=== PATIENT | male | born 1930 | race African-American/Black ===

== ENCOUNTER 2017-08-04 13:26 | Observation (INO) ==
[2017-08-04] MEDS ORDERED: CeFAZolin Syr 2,000MG/20 ML 2,000 MG/20 ML SYRINGE IVPB ONE (13:56)
[2017-08-04] MEDS ORDERED: Plasma-Lyte A (PH 7.4) 1,000 ML IVC SCH (14:00)
--- NOTE | 2017-08-04 14:03 | Anesthesia Evaluation PreOp ---
Date of Encounter: 08/04/17 Time of Encounter: 14:00 - Past History Planned Operation: Open Right Inguinal Hernia Repair Cardiac History: HTN, Hyperlipidemia Pulmonary History: Former smoker (quit > 10 years ago) [employer] History: Seizures, CVA Other Medical History: Diabetes Type II, GERD, Other (Gout) Anesthesia History: No Prior Anesthetic Complications, Past Anesthesia (GB, Hernia, T&A. Right Knee, Foot sx, Hip tumor, Trigeminal sx, CTR) Alcohol Use: none Drug use: none Medications and Allergies Allopurinol [Zyloprim] 100 mg PO BID 06/19/16 [History] Atorvastatin [Lipitor] 80 mg PO HS 06/19/16 [History] Carvedilol 3.125 mg PO BID 06/19/16 [History] Cholecalciferol (Vitamin D3) [Vitamin D3] 1 cap PO DAILY 06/19/16 [History] Ferrous Sulfate [Iron] 325 mg PO DAILY 06/19/16 [History] Folic Acid [Folic Acid] 1 mg PO DAILY 06/19/16 [History] Loperamide [Imodium] 2 mg PO DAILY PRN 06/19/16 [History] Meclizine [Antivert] 25 mg PO TID PRN 06/19/16 [History] Pravastatin Sodium [Pravachol] 60 mg PO DAILY 06/19/16 [History] Sitagliptin Phosphate [Januvia] 50 mg PO DAILY 06/19/16 [History] Terazosin [Hytrin] 1 mg PO DAILY 06/19/16 [History] Docusate Sodium 100 mg PO DAILY PRN 08/01/16 [History] Famotidine [Pepcid] 40 mg PO DAILY 08/04/17 [History] Loratadine [Allergy Relief] 10 mg PO DAILY 08/04/17 [History] 3 Allergy/AdvReac Type Severity Reaction Status Date / Time amlodipine [From [facility]] Allergy See Verified 08/01/16 10:30 Comments peanut Allergy Anaphylaxis Verified 08/01/16 10:30 - Meds/Allergy Pre-op Review Medications Reviewed: Yes Allergies Reviewed: Yes Beta Blockers on Current Med List: Yes If Beta Blockers taken, Date/Time (Last Dose taken): 08/04/17 @ 19:00 Anesthesia Results - Labs Laboratory Tests 11/17/14 06/19/16 05/22/17 16:03 03:36 09:17 WBC Hgb Hct Plt Count INR 1.1 Sodium 139 Potassium 4.2 Chloride 107 Carbon Dioxide 26 BUN 15 Creatinine 1.06 Hemoglobin A1c 05/22/17 07/26/17 09:17 11:14 WBC 6.3 Hgb 10.1 L Hct 32.7 L Plt Count 257 INR Sodium Potassium Chloride Carbon Dioxide BUN Creatinine Hemoglobin A1c 6.0 H - Imaging EKG: report reviewed (SB) Anesthesia Exam O2 Sat Height 1.7 m Height 1.7 m Weight 73.936 kg Weight 73.936 kg O2 Sat by Pulse Oximetry 98 Vital Signs Temp Pulse Resp BP Pulse Ox 97.6 F 69 18 162/77 98 08/04/17 13:47 08/04/17 13:47 08/04/17 13:47 08/04/17 13:47 08/04/17 13:47 NPO (# of Hours): > 8 Hrs Pain Scale: 0 Pain Scale Used: Numeric (1 - 10) - HEENT Pupil (Motor): Pupils equal, EOMI Mallampati: III (facial Trauma In Urdu War) Teeth: Missing Denture Type: Upper: Complete, Lower: Complete Oral Opening: Greater than 3 - [employer] LOC: Oriented [employer] Motor: Normal RUE, Normal LUE, Normal RLE, Normal LLE, Normal Face [employer] Sensory: Normal: RUE, LUE, RLE, LLE, Face - Cardiac Rhythm: Regular Murmur: None JVD: No Carotid Bruit: No - Pulmonary Breath Sounds: bilateral Clear Respiratory Effort: Symmetrical Anesthesia Assess/Plan ASA Score: 3 Modified Gambier Scale for Level of Consciousness: Cooperative, oriented, and tranquil Anesthetic Plan: General Autologous Blood: Yes Monitoring Plan: Standard Monitors Recovery Plan: PACU
[2017-08-04] MEDS ORDERED: *HR* FentaNYL (PF) 100 MCG/2 ML VIAL ONE (14:28)
[2017-08-04] MEDS ORDERED: *HR* Propofol 200 MG/20 ML VIAL IVP ONE (14:28)
[2017-08-04] MEDS ORDERED: Famotidine 20 MG/2 ML VIAL IVP ONE (15:34)
[2017-08-04] MEDS ORDERED: Acetaminophen IV 1,000 MG/100 ML INFUS..BTL IVPB ONE (15:34)
[2017-08-04] MEDS ORDERED: Acetaminophen IV 1,000 MG/100 ML INFUS..BTL ONE (15:37)
[2017-08-04] MEDS ORDERED: Famotidine 20 MG/2 ML VIAL ONE (15:38)
--- NOTE | 2017-08-04 16:10 | History & Physical Report ---
Date of Encounter: 08/04/17 Time of Encounter: 16:09 24 Hour HP Update - Instructions Instructions: If the History and Physical is less than 30 days old and was completed prior to A.M. admission and or procedure and has NOT been updated on calendar day of procedure please complete this update prior to performing procedure. - Update Patient reports changes in Medical Condition: No Changes in examination, assessment, or condition: No Changes in Medication: No Preop tests/diagnostics Reviewed: Yes Surgery Remains Indicated: Yes Consent for Planned Operative Procedure(s) Verified: Yes - Pre-Operative Checklist Preoperative Checklist Indicated: Yes Prophylactic Antibiotic Ordered: Yes Home Medications Include Beta Manuel: Yes Beta Manuel Taken Today (Day of Surgery): Yes Beta Manuel Taken Yesterday (Day Prior to Surgery): Yes Is VTE Prophylaxis Indicated?: Yes - Attending Attestation patient seen and examined; no changes in health since last evaluation; okay to proceed with surgery
[2017-08-04] MEDS ORDERED: EPHEDrine 50 MG/ML VIAL ONE (17:09)
[2017-08-04] MEDS ORDERED: Ondansetron 4 MG/2 ML VIAL ONE (17:23)
[2017-08-04] MEDS ORDERED: Dexamethasone 4 MG/ML VIAL ONE (17:23)
[2017-08-04] MEDS ORDERED: Lidocaine -MPF 2% 2 ML VIAL ONE (17:23)
[2017-08-04] MEDS ORDERED: *HR* HYDROmorphone (PF) 1 MG/ML SYRINGE IVP PRN (17:29)
[2017-08-04] MEDS ORDERED: Ondansetron 4 MG/2 ML VIAL IVP ONE (17:29)
[2017-08-04] MEDS ORDERED: *HR* HYDROmorphone 2 MG/ML SYRINGE ONE (17:36)
--- NOTE | 2017-08-04 19:23 | Discharge Summary ---
Outpatient Proc Discharge Plan - Plan Additional Instructions: Pain: Alternate every 6 hours with tylenol (325mg) and ibuprofen (400mg or 600mg ) for the next 48 hours, whether the patient feels pain or not. Use the oxycodone as needed for pain not controlled with tylenol and ibuprofen. Activity: no lifting more than 15lbs. No strenuous exercise or activity. Your mesh will need time to incorporate into your tissues. Incision: keep the incision dry until 08/06/17. Things to expect: you may experience scrotal swelling and bruising. That is expected. I advise you to wear supportive underwear or a jock strap. You may also apply ice to the incision and the groin region, 20 min on and 20 min off. You may experience a fullness in your groin and it may feel as if your hernia came back. This is expected. Things to Watch out for: If you experience SIGNIFICANT pain in your groin, redness along the incision, pus like drainage, fevers, chills, numbness or tingling, or any symptoms you feel warrant evaluation, please call the office. Prescriptions: Oxycodone HCl 5 mg PO Q6HR PRN 7 Days #28 tablet PRN Reason: Pain Docusate Sodium [Colace] 100 mg PO BID 10 Days #20 capsule Home Medications: Allopurinol [Zyloprim] 100 mg PO BID 06/19/16 [History] Atorvastatin [Lipitor] 80 mg PO HS 06/19/16 [History] Carvedilol 3.125 mg PO BID 06/19/16 [History] Cholecalciferol (Vitamin D3) [Vitamin D3] 1 cap PO DAILY 06/19/16 [History] Ferrous Sulfate [Iron] 325 mg PO DAILY 06/19/16 [History] Loperamide [Imodium] 2 mg PO DAILY PRN 06/19/16 [History] Meclizine [Antivert] 25 mg PO TID PRN 06/19/16 [History] Sitagliptin Phosphate [Januvia] 50 mg PO DAILY 06/19/16 [History] Terazosin [Hytrin] 1 mg PO DAILY 06/19/16 [History] Docusate Sodium [Colace] 100 mg PO BID 10 Days #20 capsule 08/04/17 [Rx] Famotidine [Pepcid] 40 mg PO DAILY 08/04/17 [History] Lisinopril [Zestril] 5 mg PO DAILY 08/04/17 [History] Loratadine [Allergy Relief] 10 mg PO DAILY PRN 08/04/17 [History] Oxycodone HCl 5 mg PO Q6HR PRN 7 Days #28 tablet 08/04/17 [Rx]
[2017-08-04] MEDS ORDERED: *HR* OxyCODONE Immed Rel 5 MG TABLET PO PRN (20:02)
[2017-08-04] MEDS ORDERED: Ibuprofen 400 MG TABLET PO PRN (20:02)
[2017-08-04] MEDS ORDERED: Naloxone 0.4 MG/ML INJ IVP PRN (20:02)
[2017-08-04] MEDS ORDERED: Ondansetron ODT 4 MG TAB.RAPDIS SL PRN (20:02)
[2017-08-04] MEDS ORDERED: D5% in 0.45% NACL 1,000 ML IVC SCH (20:15)
--- NOTE | 2017-08-04 20:24 | Anesthesia Evaluation Post Op ---
Date of Encounter: 08/04/17 Time of Encounter: 20:23 - Vital Signs Vital Signs: Last Vital Signs Temp 98.4 F 08/04/17 20:11 Pulse 86 08/04/17 20:11 Resp 13 08/04/17 20:11 BP 119/67 08/04/17 20:11 Pulse Ox 96 08/04/17 20:11 - Lungs Lungs: Clear Ascult./Percussion - Airway Airway: Non-obstructed - Cardiovascular Regular Rate - Mental Status Mental Status: Alert & Oriented, Answers Appropriately - Pain Pain Scale: 3 - Nausea Vomiting Nausea Vomiting: Not Present - Hydration Hydration: NPO - Discharge PostOp Status: Transfer Patient to floor
--- NOTE | 2017-08-04 20:25 | Operative Note ---
Date of procedure: 08/04/17 Pre-op diagnosis: right inguinal hernia Post-op diagnosis: other (right direct inguinal hernia, reducible) Procedure: open right inguinal hernia repair with mesh Implants: mesh Anesthesia: GETA Local Anesthetics: 0.5% Sensorcaine HCL SubQ (cc) Surgeon: Elroy Phelps Was there an medical laboratory assistant present: Yes Steam Tunnel Feeder: Kath Corey Estimated blood loss (cc): 10 Specimen: none Condition: stable Disposition: PACU Procedure in Detail: The patient was brought into the operating room suite and placed in the supine position. Mechanical DVT prophylaxis was placed. The patient underwent smooth induction of anesthesia. Preoperative antibiotics were given. A timeout was held identifying correct patient pathology and procedure and physician.. Everyone was in agreement and we began the procedure. Incision to Aponeurosis of the External Oblique I identified ASIS and the pubic tubercle, and used a marking pen to draw the path parallel to the inguinal ligament two fingerbreadths above that. I then made an incision with a 15 blade scalpel. Using electrocautery, and tension and countertension, I dissected down through the subcutaneous tissue and miriam' s fascia until I reached the aponeurosis of the external oblique. Using a 15 blade scalpel I created a small incision along the direction of the fibers. Using the metzenbaum scissors extended the incision in the aponoeurosis superiorly and inferiorly. Using a hemostat, I grasped both leaflets of the aponeurosis and bluntly dissected medially and laterally and encircled the spermatic cord with my finger before using a adalgisa. Dissection to Mesh Placement Using a combination of blunt and sharp dissection, I excised through the cremesteric muscles and dissected a hernia sac from the spermatic cord. It was clear during the dissection that I was dealing with a direct hernia. I was able to reduce the contents. I did have to incise some of the adhesions around the hernia to ensure that the hernia would remain reduced.. I was able to place my finger into the defect. I then placed the mesh plug into the space and , using 0 prolene sutured the edges of the mesh to the surrounding tissue to fill in and eliminate the defect. I then anchored the mesh to the Tk's ligament using a 3-0 prolene in two places, one for the medial side, one for the lateral side. And in a running fashion sutured the mesh to the conjoined tendon and the shelving edge of Poupart's ligament respectively. I tied the tails of the mesh together to reapproximate the external ring. I was able to place my pinky finger between the space to ensure the reapproxmation was not too tight. Closure I then closed the aponeurosis of the external oblique using 3-0 vicryl in a running fashion. 2-0 vicryl suture was used to close miriam's fascia as well as deep dermal space. I used a 4-0 monocryl to close the skin in a running subcuticular fashion. In addition, I closed the peritoneal violation from the original incision for the camera port, then called all laparoscopic incisions with interrupted 4-0 monocryl. All incisions were closed with dermabond. Both testicles were in place. The patient tolerated the procedure well and was escorted to PACU in stable condition
[2017-08-05] MEDS: Ibuprofen 400 MG TABLET PO SCH ×3 (04:23→12:08)
[2017-08-05] MEDS: Acetaminophen 325 MG TABLET PO SCH ×3 (04:24→12:07)
--- NOTE | 2017-08-05 09:29 | Discharge Summary ---
<MameSerina - Last Filed: 08/05/17 09:40> Date of Encounter: 08/05/17 Time of Encounter: 09:27 - Discharge Diagnosis (1) Right inguinal hernia Priority: Primary Status: Acute - Discharge Medications Home Medications: Allopurinol [Zyloprim] 100 mg PO BID 06/19/16 [History] Atorvastatin [Lipitor] 80 mg PO HS 06/19/16 [History] Carvedilol 3.125 mg PO BID 06/19/16 [History] Cholecalciferol (Vitamin D3) [Vitamin D3] 1,000 unit PO DAILY 06/19/16 [History] Ferrous Sulfate [Iron] 325 mg PO DAILY 06/19/16 [History] Loperamide [Imodium] 2 mg PO DAILY PRN 06/19/16 [History] Meclizine [Antivert] 25 mg PO TID PRN 06/19/16 [History] Sitagliptin Phosphate [Januvia] 50 mg PO DAILY 06/19/16 [History] Terazosin [Hytrin] 1 mg PO DAILY 06/19/16 [History] Docusate Sodium [Colace] 100 mg PO BID 10 Days #20 capsule 08/04/17 [Rx] Famotidine [Pepcid] 40 mg PO DAILY 08/04/17 [History] Lisinopril [Zestril] 5 mg PO DAILY 08/04/17 [History] Loratadine [Allergy Relief] 10 mg PO DAILY PRN 08/04/17 [History] Oxycodone HCl 5 mg PO Q6HR PRN 7 Days #28 tablet 08/04/17 [Rx] Allergies/Adverse Reactions: 3 Allergy/AdvReac Type Severity Reaction Status Date / Time amlodipine [From [facility]] Allergy See Verified 08/01/16 10:30 Comments peanut Allergy Anaphylaxis Verified 08/01/16 10:30 General Surgery Exam Initial Vital Signs Temp Pulse Resp BP Pulse Ox 97.6 F 69 18 162/77 98 08/04/17 13:47 08/04/17 13:47 08/04/17 13:47 08/04/17 13:47 08/04/17 13:47 - General physical appearance well developed, well nourished - Eyes normal ocular movement - Respiratory normal expansion, normal respiratory effort, clear to auscultation - Cardiovascular Cardiovascular exam: Present: RRR, no murmurs/rubs/gallops - Abdomen Abdomen general surgery: Present: bowel sounds present, soft, non tender, surgical scars - Incision Incision: Present: clean and dry, intact. Absent: erythema - Psychiatric Psychiatric general surgery: Present: appropriate, speech is normal Date of admission: 08/04/17 20:02 Primary care physician: Zhen Drew MD Discharging clinician: Serina Vilchis Anticipated date of discharge: 08/05/17 - Patient Status Disposition: Home, Self-Care Condition: Good Functional capacity at discharge: uses cane/walker Overall status at discharge: patient is progressing back to baseline - Discharge Instructions Follow Up With: Zhen Drew MD [Primary Care Provider] - Elroy Phelps MD [Non-Partnered Physician] - Additional Instructions: Pain: Alternate every 6 hours with tylenol (325mg) and ibuprofen (400mg or 600mg ) for the next 48 hours, whether the patient feels pain or not. Use the oxycodone as needed for pain not controlled with tylenol and ibuprofen. Activity: no lifting more than 15lbs. No strenuous exercise or activity. Your mesh will need time to incorporate into your tissues. Incision: keep the incision dry until 08/06/17. Things to expect: you may experience scrotal swelling and bruising. That is expected. I advise you to wear supportive underwear or a jock strap. You may also apply ice to the incision and the groin region, 20 min on and 20 min off. You may experience a fullness in your groin and it may feel as if your hernia came back. This is expected. Things to Watch out for: If you experience SIGNIFICANT pain in your groin, redness along the incision, pus like drainage, fevers, chills, numbness or tingling, or any symptoms you feel warrant evaluation, please call the office. Home Medication List * You have been given a list of your current medications. If you have changes in your medications, update your list. * Provide a list of current medications to your primary care physician. * Carry a copy of your current medications with you in case of an emergency. Follow Up Appointment * Please call your surgeon's office within 24 hours or next business day to schedule a follow up appointment. - Diet and Activity Activity: increase activity as tolerated Diet: advance to your usual diet - Hospital Course Hospital course: Mr. Abbasi is a 87 year old male with a a PMHX HTN, HLN, DM and GERD presenting for open right inguinal hernia repair with mesh. Patient tolerated the procedure well and remained overnight to monitor clinical status. Pt tolerated diet and liquids well, demonstrated evidence of return of bowel function, and voiding without difficulty, and appropriate mental status. Pt was discharged following evaluation in AM. - Time Spent with Patient Total time spent providing and/or coordinating discharge services: Procedures and tests throughout hospitalization: Open right inguinal hernia repair with mesh Labs on day of discharge: Labs from last 24 hours 08/04/17 13:43 POC Glucose 85 <Silvio Richards M - Last Filed: 08/05/17 10:06> Date of Encounter: 08/05/17 General Surgery Exam Initial Vital Signs Temp Pulse Resp BP Pulse Ox 97.6 F 69 18 162/77 98 08/04/17 13:47 08/04/17 13:47 08/04/17 13:47 08/04/17 13:47 08/04/17 13:47 Date of admission: 08/04/17 20:02 Primary care physician: Zhen Drew MD - Hospital Course Hospital course: Mr. Abbasi is a 87 year old male - Time Spent with Patient Total time spent providing and/or coordinating discharge services: Labs on day of discharge: Labs from last 24 hours 08/04/17 13:43 POC Glucose 85 - Attending Attestation I examined this patient and my medical decision-making was reviewed with the Resident Physician. I agree with the documented findings, disposition and treatment plan as described except to the extent set forth below. I reviewed the above and agree with the above plan.
[2017-08-05 10:29] VITALS: BP 133/62
== END 2017-08-05 12:20 | disposition home or self-care (01) ==
LOC: 3ANU 13:26 → SAMDAY 13:26 → 3ANU 20:28
PROVIDERS: ADMIT Surgery; ATTEND Surgery